=== PATIENT | female | born 1980 | race Caucasian/White ===

== ENCOUNTER 2018-06-25 07:44 | Emergency (ER) | payer OTHER ==
[~2018-06-25] VITALS: Ht 154.9 cm; Wt 105.2 kg
[~2018-06-25 07:44] MED LIST: ACET-787 PO; CARI350T PO
[2018-06-25 07:55] VITALS: BP 132/97
--- NOTE | 2018-06-25 07:59 | NUR ---
PATIENT AMBULATED TO BED 12 AT THIS TIME.
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
[2018-06-25] MEDS ORDERED: PANTOPRAZOLE 40 MG INJ VIAL IVP ONE (08:20)
[2018-06-25] MEDS ORDERED: ONDANSETRON 4 MG/2 ML VIAL IVP ONE (08:20)
[2018-06-25] MEDS ORDERED: NACL 0.9% 1,000 ML IV SCH (08:20)
[2018-06-25] MEDS ORDERED: KETOROLAC 30 MG/ML VIAL IVP ONE (08:20)
[2018-06-25 09:03] LABS: BASOPHILS % (AUTO) 0.2 % (0.0-2.0); EOSINOPHILS # (AUTO) 0.1 K/uL (0-0.4); EOSINOPHILS % (AUTO) 0.5 % (0.0-4.0); HEMATOCRIT 37.1 % (36-48); HEMOGLOBIN 12.6 g/dL (12.0-16.0); LYMPHOCYTES # (AUTO) 2.7 K/uL (2.5-16.5); LYMPHOCYTES % (AUTO) 19.8 % (20.5-51.1); MEAN CORPUSCULAR HEMOGLOBIN 27 pg (27-31); MEAN CORPUSCULAR HGB CONC 34 g/dL (33-37); MEAN CORPUSCULAR VOLUME 78.2 fL (80-94); MONOCYTES # (AUTO) 0.7 K/uL (0.8-1.0); NEUTROPHILS % (AUTO) 74.5 % (42.2-75.2); PLATELET COUNT (AUTO) 365 K/uL (140-450); RED BLOOD CELL COUNT(AUTO) 4.75 MIL/uL (4.20-5.40); RED CELL DISTRIBUTION WIDTH 14.5 % (11.6-13.7); WHITE BLOOD COUNT (AUTO) 13.5 K/uL (4.8-10.8)
[2018-06-25 09:27] LABS: APPEARANCE,URINE CLOUDY (CLEAR); BILIRUBIN,URINE NEGATIVE (NEGATIVE); BLOOD, URINE 3+ (NEGATIVE); COLOR,URINE YELLOW (YELLOW); LEUKOCYTE ESTERASE ,URINE NEGATIVE (NEGATIVE); NITRITE, URINE NEGATIVE (NEGATIVE); PH,URINE 6.5 (5.0-9.0); UGLUCOSE NEGATIVE (NEGATIVE)
[2018-06-25 09:37] LABS: ANION GAP 15.7 (8-16); CARBON DIOXIDE 21.4 mmol/L (21-32); POTASSIUM 4.1 mmol/L (3.5-5.1)
[2018-06-25 09:43] LABS: ALBUMIN 3.6 g/dL (3.4-5.0); TOTAL BILIRUBIN 0.2 mg/dL (0.0-1.0)
[2018-06-25 09:57] LABS: RBC,URINE 11-20 (MOD) /HPF (0-5); WBC,URINE 0-5 /HPF (0-5)
[2018-06-25 11:27] VITALS: BP 110/72
--- NOTE | 2018-06-25 11:29 | NUR ---
Patient discharged with v/s stable. Written and verbal after care instructions given and explained. Patient alert, oriented and verbalized understanding of instructions. Ambulatory with steady gait. All questions addressed prior to discharge. ID band removed. Patient advised to follow up with PMD. Rx of MISAEL HANNON given. Patient educated on indication of medication including possible reaction and side effects. Opportunity to ask questions provided and answered.
== END 2018-06-25 11:29 | disposition home or self-care (01) ==
LOC: MED 07:44
DX: K80.20 Calculus of gallbladder without cholecystitis without obstruction (principal); R35.0 Frequency of micturition; R39.15 Urgency of urination; J45.909 Unspecified asthma, uncomplicated; Z79.891 Long term (current) use of opiate analgesic; Z79.899 Other long term (current) drug therapy; Z85.43 Personal history of malignant neoplasm of ovary; Z98.890 Other specified postprocedural states
CPT/HCPCS: 36415; 76705; 80053; 81001; 81025; 83690; 85025; 87086; 96374; 96375; 99284; C9113; J1885; J2405; Q0092

== ENCOUNTER 2018-06-25 22:18 | Emergency (ER) | payer OTHER ==
[~2018-06-25] VITALS: Ht 154.9 cm; Wt 106.1 kg
[2018-06-25 22:49] VITALS: BP 122/67
--- NOTE | 2018-06-25 22:53 | NUR ---
AMBULATED TO LOBBY WITH VSS. PROVIDING URINE.
[2018-06-26 01:30] LABS: BASOPHILS % (AUTO) 0.3 % (0.0-2.0); EOSINOPHILS # (AUTO) 0.1 K/uL (0-0.4); EOSINOPHILS % (AUTO) 0.8 % (0.0-4.0); HEMATOCRIT 36.4 % (36-48); HEMOGLOBIN 11.9 g/dL (12.0-16.0); LYMPHOCYTES # (AUTO) 2.5 K/uL (2.5-16.5); LYMPHOCYTES % (AUTO) 19.7 % (20.5-51.1); MEAN CORPUSCULAR HEMOGLOBIN 26 pg (27-31); MEAN CORPUSCULAR HGB CONC 33 g/dL (33-37); MEAN CORPUSCULAR VOLUME 79.6 fL (80-94); MONOCYTES % (AUTO) 7.6 % (1.7-9.3); NEUTROPHILS % (AUTO) 71.6 % (42.2-75.2); PLATELET COUNT (AUTO) 322 K/uL (140-450); RED BLOOD CELL COUNT(AUTO) 4.58 MIL/uL (4.20-5.40); RED CELL DISTRIBUTION WIDTH 14.8 % (11.6-13.7); WHITE BLOOD COUNT (AUTO) 12.6 K/uL (4.8-10.8)
[2018-06-26 01:32] LABS: APPEARANCE,URINE CLEAR (CLEAR); BILIRUBIN,URINE NEGATIVE (NEGATIVE); BLOOD, URINE 1+ (NEGATIVE); COLOR,URINE YELLOW (YELLOW); LEUKOCYTE ESTERASE ,URINE NEGATIVE (NEGATIVE); NITRITE, URINE NEGATIVE (NEGATIVE); UGLUCOSE NEGATIVE (NEGATIVE)
[2018-06-26 01:47] LABS: ALBUMIN 3.2 g/dL (3.4-5.0); ANION GAP 14.7 (8-16); CARBON DIOXIDE 24.3 mmol/L (21-32); CREATININE 1.3 mg/dL (0.6-1.3); TOTAL BILIRUBIN 0.4 mg/dL (0.0-1.0)
--- NOTE | 2018-06-26 01:49 | NUR ---
PT AMBULATED TO BED 12
[2018-06-26 01:54] LABS: WBC,URINE 0-5 /HPF (0-5)
--- NOTE | 2018-06-26 01:57 | NUR ---
BIB SELF FOR SECOND TIME TODAY. SEEN HERE AT 07:00 AND DX WITH VAL. TOOK NORCO PERSCRIBED. STATES PAIN UNRELIEVED AND WORSENING. 01/22 PAIN. DENIES OTHER SYMPTOMS AT THIS TIME. BED IN LOW LOCKED POSTION. PATIENT GIVEN BLANKET AND SOCKS REQUESTED.
[2018-06-26] MEDS ORDERED: KETOROLAC 60 MG/2 ML VIAL IM ONE (02:50)
--- NOTE | 2018-06-26 03:02 | NUR ---
Dr. Vasquez evaluating patient at bedside.
--- NOTE | 2018-06-26 03:56 | NUR ---
PATIENT SLEEPING IN BED. WHEN AWOKEN PATIENT STATED SHE HAD NO MORE PAIN AT THIS TIME.
[2018-06-26 04:09] VITALS: BP 125/65
--- NOTE | 2018-06-26 04:09 | NUR ---
Patient discharged with v/s stable. Written and verbal after care instructions given and explained. Patient verbalized understanding. Ambulatory with steady gait. All questions addressed prior to discharge. Advised to follow up with PMD.
== END 2018-06-26 04:09 | disposition home or self-care (01) ==
LOC: MED 22:18
DX: K80.20 Calculus of gallbladder without cholecystitis without obstruction (principal); F17.200 Nicotine dependence, unspecified, uncomplicated; J45.909 Unspecified asthma, uncomplicated; Z85.43 Personal history of malignant neoplasm of ovary; Z98.890 Other specified postprocedural states; Z79.899 Other long term (current) drug therapy; Z79.891 Long term (current) use of opiate analgesic
CPT/HCPCS: 36415; 80053; 81001; 81025; 83690; 85025; 96372; 99283; J1885

== ENCOUNTER 2018-12-29 21:08 | Emergency (ER) | payer OTHER ==
[~2018-12-29] VITALS: Ht 154.9 cm; Wt 103.4 kg
[2018-12-29 21:10] VITALS: BP 106/65
--- NOTE | 2018-12-29 21:13 | NUR ---
TO LOBBY A/W BED AMBULATORY
--- NOTE | 2018-12-29 21:19 | NUR ---
PT AMBULATED TO BED 08
[2018-12-29] MEDS ORDERED: LORATADINE 10 MG TAB PO ONE (21:40)
[2018-12-29] MEDS ORDERED: predniSONE 20 MG TAB PO ONE (21:40)
--- NOTE | 2018-12-29 21:40 | NUR ---
38 Y/O FEMALE PRESENTS TO ED, C/O RASH ON ARMS AND TORSO. PT STATES RASH APPEARED ON SATURDAY. PT DENIES ANY ALLERGIES. PT DENIES ANY PAIN. PT DENIES ANY ITCHING. NO SOB OR CHEST PAIN. PT VSS. ERMD AWARE. WILL CONTINUE TO MONITOR.
[2018-12-29 22:20] VITALS: BP 118/74
--- NOTE | 2018-12-29 22:20 | NUR ---
DISCHARGE PAPERS GIVEN TO PT. PT STATES RELIEF. VSS. RX OF CLARITIN AND PREDNISONE GIVEN. SIDE EFFECTS EXPLAINED. INSTRUCTED TO F/U WITH PCP AND WHEN TO RETURN TO ER. PT VERBALLIZED UNDERSTANDING OF DC INSTRUCTIONS. ALL QUESTIONS ANSWERED.
== END 2018-12-29 22:20 | disposition home or self-care (01) ==
LOC: MED 21:08
DX: R21 Rash and other nonspecific skin eruption (principal); J45.909 Unspecified asthma, uncomplicated; Z85.43 Personal history of malignant neoplasm of ovary; Z79.899 Other long term (current) drug therapy
CPT/HCPCS: 99283; J7512

== ENCOUNTER 2019-04-21 17:16 | Emergency (ER) | payer MEDICAID, OTHER ==
[~2019-04-21] VITALS: Ht 154.9 cm; Wt 105.2 kg
[2019-04-21 17:27] VITALS: BP 116/68
[2019-04-21] MEDS ORDERED: ACETAMINOPHEN 325 MG TAB PO ONE (17:30)
[2019-04-21] MEDS ORDERED: PIPERACILLIN/TAZOBACTAM 3.375 GM in DEXTROSE 5% 50 ML IV ONE (18:10)
[2019-04-21] MEDS ORDERED: NACL 0.9% 1,000 ML IV ONE (18:10)
[2019-04-21] MEDS ORDERED: PIPERACILLIN/TAZOBACTAM 3.375 GM VIAL IV ONE (18:18)
[2019-04-21 18:36] LABS: BASOPHILS % (AUTO) 0.4 % (0.0-2.0); EOSINOPHILS % (AUTO) 0.3 % (0.0-4.0); HEMATOCRIT 37.4 % (36-48); HEMOGLOBIN 12.3 g/dL (12.0-16.0); LYMPHOCYTES # (AUTO) 0.8 K/uL (2.5-16.5); LYMPHOCYTES % (AUTO) 10.6 % (20.5-51.1); MEAN CORPUSCULAR HEMOGLOBIN 26 pg (27-31); MEAN CORPUSCULAR HGB CONC 33 g/dL (33-37); MEAN CORPUSCULAR VOLUME 78.3 fL (80-94); MONOCYTES # (AUTO) 0.8 K/uL (0.8-1.0); MONOCYTES % (AUTO) 10.9 % (1.7-9.3); NEUTROPHILS # (AUTO) 5.7 K/uL (1.8-7.7); NEUTROPHILS % (AUTO) 77.8 % (42.2-75.2); PLATELET COUNT (AUTO) 269 K/uL (140-450); RED BLOOD CELL COUNT(AUTO) 4.78 MIL/uL (4.20-5.40); RED CELL DISTRIBUTION WIDTH 15.6 % (11.6-13.7); WHITE BLOOD COUNT (AUTO) 7.3 K/uL (4.8-10.8)
[2019-04-21 18:37] LABS: APPEARANCE,URINE CLEAR (CLEAR); BILIRUBIN,URINE 1+ (NEGATIVE); BLOOD, URINE 1+ (NEGATIVE); COLOR,URINE YELLOW (YELLOW); LEUKOCYTE ESTERASE ,URINE NEGATIVE (NEGATIVE); NITRITE, URINE NEGATIVE (NEGATIVE); UGLUCOSE NEGATIVE (NEGATIVE)
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
[2019-04-21 19:09] LABS: RBC,URINE 0-5 /HPF (0-5); WBC,URINE 0-5 /HPF (0-5)
--- NOTE | 2019-04-21 19:39 | NUR ---
Dr. Vasquez examining patient.
[2019-04-21 19:41] LABS: ALBUMIN 3.7 g/dL (3.4-5.0); ANION GAP 14.7 (8-16); CARBON DIOXIDE 22.3 mmol/L (21-32); TOTAL BILIRUBIN 0.4 mg/dL (0.0-1.0)
--- NOTE | 2019-04-21 19:44 | NUR ---
PATIENT ALERT AND ORIENTED, BREATHING EVEN AND UNLABORED
--- NOTE | 2019-04-21 19:44 | NUR ---
DR GUY NO LONGER WANTS CT SCAN WITH CONTRAST AND IS FINE WITHOUT CONTRAST
--- NOTE | 2019-04-21 19:53 | NUR ---
PT TAKEN TO CT
--- NOTE | 2019-04-21 20:59 | NUR ---
PT RESTING COMFORTABLY, VS STABLE. INFORMED PT WAITING FOR TEST RESULTS TO COME BACK.
[2019-04-21 21:11] VITALS: BP 120/85
--- NOTE | 2019-04-21 21:11 | NUR ---
Patient discharged with v/s stable. Written and verbal after care instructions given and explained. Patient alert, oriented and verbalized understanding of instructions. Ambulatory with steady gait. All questions addressed prior to discharge. ID band removed. Patient advised to follow up with PMD. Rx of PREDNISONE, SUDAFED, MOTRIN, ZOFRAN given. Patient educated on indication of medication including possible reaction and side effects. Opportunity to ask questions provided and answered.
--- NOTE | 2019-04-30 12:10 | NUR ---
Late entry. Confirmed with RN that 0.9 NS IV completed at 1930. Zosyn began at 1830 and completed at 1900.
== END 2019-04-21 21:11 | disposition home or self-care (01) ==
LOC: MED 17:16
DX: R10.13 Epigastric pain (principal); R11.0 Nausea; R05 Cough; R09.81 Nasal congestion; J45.909 Unspecified asthma, uncomplicated; F17.200 Nicotine dependence, unspecified, uncomplicated; Z98.890 Other specified postprocedural states; Z85.43 Personal history of malignant neoplasm of ovary; Z79.899 Other long term (current) drug therapy
CPT/HCPCS: 36415; 74176; 80053; 81001; 81025; 83605; 85025; 87040; 96365; 99284; J2543; J7030